=== PATIENT | female | born 1990 | race Two or more races ===

== ENCOUNTER → 2020-09-28 | Outpatient (CLI) | payer OTHER ==
--- NOTE | 2020-09-28 18:01 | RAD ---
EXAM: Ultrasound OB Greater than 14 weeks INDICATION: Reason: UTERINE SIZE DATE DISCREPANCY / Spl. Instructions: / History: TECHNIQUE: Real-time obstetrical ultrasound was performed with permanent freeze-frame documentation. COMPARISON: None. FINDINGS: POSITION: Breech. HEART RATE: 1 49 bpm BRYNN: 15 cm PLACENTA: Anterior, likely low-lying. There is thickening in the region of the central placenta which could reflect presence of an underlying leiomyoma or less likely a sustained uterine contraction. CERVICAL LENGTH: 4.9 cm MATERNAL UTERUS: Unremarkable. MATERNAL ADNEXA: Unremarkable. AGE/DATES: Gestational Age by LMP: 19 weeks 4 days Gestation Age by US: 19 weeks 5 days EDC by LMP: February 18, 2021 EDC by US: February 17, 2021 WEIGHT: 294 grams +/- 44 grams PERCENTILE WEIGHT: Not estimated BIOMETRIC PARAMETERS: BPD: 4.7 cm corresponding with 20 weeks 2 days HC: 17.4 cm corresponding with 19 weeks 6 days AC: 14.2 cm corresponding with 19 weeks 4 days FL: 2.9 cm corresponding with 19 weeks 1 day ANATOMY: CARDIAC: Normal four chamber heart. UMBILICAL CORD: Normal 3 vessel cord. Normal cord insertion. BRAIN: Unremarkable. NOSE/LIPS: Unremarkable SPINE: Unremarkable. EXTREMITIES: Unremarkable. STOMACH: Unremarkable. KIDNEYS: Unremarkable. BLADDER: Unremarkable. IMPRESSION: Normal OB ultrasound demonstrating a single viable fetus in breech position. Estimated gestational age of 19 weeks 5 days and EDC of February 17, 2021. Electronically signed by: Erasmo Reyes MD (09/28/2020 5:58 PM) [id number]
== END ==
LOC: US 12:08
PROVIDERS: ATTEND Obstetrics & Gynecology
DX: O26.842 Uterine size-date discrepancy, second trimester (principal); Z3A.19 19 weeks gestation of pregnancy
CPT/HCPCS: 76805

== ENCOUNTER 2021-02-14 19:54 | Inpatient (IN) | payer OTHER ==
[~2021-02-14] VITALS: Ht 152.4 cm; Wt 93.0 kg
[2021-02-14] MEDS ORDERED: ACETAMINOPHEN 325 MG TABLET. PO PRN (20:00)
[2021-02-14] MEDS ORDERED: IV RINGERS,LACTATED 1000ML 1,000 ML IV PRN ×2 (20:00→21:00)
[2021-02-14] MEDS ORDERED: ONDANSETRON PF 4 MG/2 ML VIAL. IVP PRN (20:00)
[2021-02-14 20:34] LABS: BILIRUBIN,URINE NEGATIVE (NEG); CLARITY,URINE TURBID; COLOR,URINE YELLOW; NITRITE,URINE NEGATIVE (NEG); PH,URINE 6.5 (<5.0-8.0); PROTEIN,URINE 30 mg/dL (NEG-TRACE); UROBILINOGEN,URINE 0.2 mg/dL (0.2 mg/dL)
[2021-02-14 20:40] LABS: WBC,URINE TNTC /HPF (0-4)
[2021-02-14 20:41] LABS: BACTERIA,URINE MANY /HPF (0-FEW)
[2021-02-14 20:42] LABS: YEAST,URINE PRESENT /HPF
[2021-02-14 20:45] LABS: AMNIO PT NEGATIVE
[2021-02-14 20:47] LABS: BARBITURATES NEG (NEG); BENZODIAZEPINES NEG (NEG); CANNABINOIDS NEG (NEG); COCAINE NEG (NEG); METHADONE NEG (NEG); OPIATES NEG (NEG); PHENCYCLIDINE NEG (NEG)
[2021-02-14 20:52] LABS: AMPHETAMINE/METHAMPHETAMINE NEG (NEG)
[2021-02-14] MEDS ORDERED: OXYTOCIN 30 UNIT/500 ML PREMIX 500 ML IV PRN (21:00)
[2021-02-14] MEDS ORDERED: IBUPROFEN 400 MG TABLET. PO PRN (21:00)
[2021-02-14] MEDS ORDERED: LIDOCAINE 1% PF 30 ML VIAL. INJ PRN (21:00)
[2021-02-14] MEDS ORDERED: MAG HYDROX/ALUMINUM HYD/SIMETH 30 ML ORAL.SUSP PO PRN (21:00)
[2021-02-14] MEDS ORDERED: TERBUTALINE 1 MG/ML VIAL. SQ PRN (21:00)
[2021-02-14] MEDS ORDERED: fentaNYL PF VIAL 100 MCG/2 ML VIAL IVP PRN (21:00)
[2021-02-14] MEDS ORDERED: 0.9 % SODIUM CHLORIDE 10 ML DISP.SYRIN. IV PRN (21:00)
[2021-02-14] MEDS ORDERED: PENICILLIN G K 5,000,000 UNIT in IV DEXTROSE 5% 100ML 100 ML IV ONE (21:15)
[2021-02-14] MEDS ORDERED: OXYTOCIN PREMIX 30 UNIT/500 ML NS BAG. IV ONE (22:00)
[2021-02-14 22:31] LABS: BASO % 1 % (0-3); EOS % 1 % (0-3); HEMATOCRIT 32.5 % (36.0-47.0); HEMOGLOBIN 10.8 g/dL (12.0-15.5); LYMPH # 1.6 x10^3/uL (1.0-4.8); LYMPH % 19 % (24-48); MEAN CORPUSCULAR HEMOGLOBIN 28 pg (25-35); MEAN CORPUSCULAR HGB CONC 33 g/dL (31-37); MEAN CORPUSCULAR VOLUME 84 fL (79-100); MONO # 0.5 x10^3/uL (0.0-1.1); MONO % 6 % (0-9); NEUT # 6.2 x10^3/uL (1.8-7.7); NEUT % 74 % (31-73); PLATELET COUNT 246 x10^3/uL (140-400); RED BLOOD COUNT 3.88 x10^6/uL (3.50-5.40); WHITE BLOOD COUNT 8.4 x10^3/uL (4.0-11.0)
[2021-02-14 22:42] VITALS: BP 125/74
[2021-02-15] MEDS ORDERED: IV RINGERS,LACTATED 1000ML 1,000 ML IV ONE
[2021-02-15] MEDS ORDERED: ePHEDrine PF IN SALINE 50 MG/10 ML SYRINGE. IV PRN
[2021-02-15] MEDS ORDERED: fentaNYL PF VIAL 100 MCG/2 ML VIAL EPID ONE
[2021-02-15] MEDS ORDERED: ONDANSETRON PF 4 MG/2 ML VIAL. IV PRN
[2021-02-15] MEDS ORDERED: NALOXONE 0.4 MG/ML VIAL. IV PRN
[2021-02-15] MEDS ORDERED: L&D EPIDURAL SYRINGE 50 ML EPID PRN
[2021-02-15] MEDS ORDERED: ROPIVacaine 0.2% PF 10 ML VIAL. ONE ×2 (00:17→01:00)
[2021-02-15] MEDS ORDERED: PENICILLIN G K 2,500,000 UNIT in IV DEXTROSE 5% 50 ML IV SCH (01:15)
--- NOTE | 2021-02-15 02:43 | PDOC1 ---
OB - History Hx of Present Care: Good Care Ultrasounds: Normal mid trimester US Obstetrical Complications: None Medical Complications: None Past Family/Social History * Past Medical, Surgical, Family and Obstetric Histories reviewed from chart. Rubella: Immune RPR/VDRL: Negative GBS Status: Positive HBsAG: Negative OB - Chief Complaint & HPI Date of Admission: Date of Admission: Feb 14, 2021 at 19:54 Chief Complaint/History : 2 Para: 1 EGA: 39 Reason for admission: active labor, rupture of membranes Admission Nurse Assessment Rev: Yes OB - Admission Exam Physical Exam Vitals: VS - Last 72 Hours, by Label Date Time Temp Pulse Resp B/P (MAP) Pulse Ox O2 Delivery O2 Flow Rate FiO2 02/15/21 00:38 Room Air 02/14/21 22:42 98.0 85 20 125/74 (91) 97 Room Air 98.0 HEENT: Normal Heart: Regular Rate Lungs: Clear Abdomen: Gravid, Non tender, Soft Extremities: Edema Reflexes: Normal Cervical Dilatation: 2cm Effacement: 75% Station: -3 Membranes: Ruptured Amniotic Fluid: Clear Accelerations: Accelerations Present Decelerations: No decelerations Contractions on Admission: 6-10 Minutes Apart Text A: 39 wks IUP SROM GBS positive P: Admit labor management. Start Pen G prophylaxis. Start pitocin augmentation. INGRID POE Jr, MD Feb 15, 2021 02:43
[2021-02-15] MEDS ORDERED: oxyCODONE/APAP 5/325 1 TAB TABLET PO PRN (02:45)
[2021-02-15] MEDS ORDERED: ACETAMINOPHEN 325 MG TABLET. PO PRN (02:45)
[2021-02-15] MEDS ORDERED: 0.9 % SODIUM CHLORIDE 10 ML DISP.SYRIN. IV PRN (02:45)
[2021-02-15] MEDS ORDERED: BENZOCAINE 20% TOPICAL AEROSOL SPRAY 57GM CAN. TP PRN (02:45)
[2021-02-15] MEDS ORDERED: OXYTOCIN 30 UNIT/500 ML PREMIX 500 ML IV PRN (02:45)
[2021-02-15] MEDS ORDERED: MAG HYDROX/ALUMINUM HYD/SIMETH 30 ML ORAL.SUSP PO PRN (02:45)
[2021-02-15] MEDS ORDERED: PHENYLEPH/MINERAL OIL/PETROLAT RECTAL OINTMENT TUBE. RC PRN (02:45)
[2021-02-15] MEDS ORDERED: TDaP (Adacel) per PROTOCOL. MC PRN (02:45)
[2021-02-15] MEDS ORDERED: SIMETHICONE 80 MG TAB.CHEW PO PRN (02:45)
[2021-02-15] MEDS ORDERED: ZOLPIDEM 5 MG TABLET. PO PRN (02:45)
[2021-02-15] MEDS ORDERED: HYDROCORTISONE 1% TOPICAL OINTMENT 30GM TUBE. TP PRN (02:45)
[2021-02-15] MEDS ORDERED: MMR per PROTOCOL. MC PRN (02:45)
[2021-02-15] MEDS ORDERED: diphenhydrAMINE HCL 25 MG CAPSULE PO PRN (02:45)
[2021-02-15] MEDS ORDERED: MAGNESIUM HYDROXIDE 2,400 MG/30 ML ORAL.SUSP. PO PRN (02:45)
--- NOTE | 2021-02-15 02:45 | PDOC ---
VAGINAL DELIVERY DATE DATE: 02/15/21 TIME: 02:44 : 2 Para: 2 EGA: 39 VAGINAL DELIVERY: VTX VACCUM ASSISTED: No PLACENTA: Spontaneous 8/9 SEX: Male WEIGHT Weight [ 3030 gm ] Nuchal Cord: Yes, Times 1 Amniotic Fluid: Clear PAIN: Epidural EPISIOTOMY: No EXTENSION: Yes (1st degree midline; hemostatic) REPAIRED WITH none EBL 300 ml COMPLICATIONS none CONDITION pt. stable Signs of Intrauterine Infectio: None Shoulder Dystocia: No INGRID POE Jr, MD Feb 15, 2021 02:45
[2021-02-15 07:30] VITALS: BP 97/55
[2021-02-15] MEDS: MULTIVITAMIN with MINERAL TABLET. PO SCH (08:24)
[2021-02-15] MEDS: DOCUSATE SODIUM 100 MG CAPSULE. PO PRN (08:24)
[2021-02-15] MEDS: IBUPROFEN 400 MG TABLET. PO PRN ×2 (08:26→15:59)
[2021-02-15 12:15] VITALS: BP 94/42
[2021-02-15 16:10] VITALS: BP 114/57
[2021-02-15 20:30] VITALS: BP 99/58
[2021-02-16 01:30] VITALS: BP 110/68
[2021-02-16] MEDS: IBUPROFEN 400 MG TABLET. PO PRN ×3 (01:51→20:37)
[2021-02-16 05:09] LABS: BASO % 1 % (0-3); EOS # 0.1 x10^3/uL (0.0-0.7); EOS % 1 % (0-3); HEMATOCRIT 29.2 % (36.0-47.0); HEMOGLOBIN 9.8 g/dL (12.0-15.5); LYMPH # 2.2 x10^3/uL (1.0-4.8); LYMPH % 24 % (24-48); MEAN CORPUSCULAR HEMOGLOBIN 28 pg (25-35); MEAN CORPUSCULAR HGB CONC 34 g/dL (31-37); MEAN CORPUSCULAR VOLUME 84 fL (79-100); MONO # 0.5 x10^3/uL (0.0-1.1); MONO % 6 % (0-9); NEUT # 6.2 x10^3/uL (1.8-7.7); NEUT % 69 % (31-73); PLATELET COUNT 212 x10^3/uL (140-400); RED BLOOD COUNT 3.47 x10^6/uL (3.50-5.40); RED CELL DISTRIBUTION WIDTH 14.2 % (11.5-14.5)
[2021-02-16 07:00] VITALS: BP 96/62
[2021-02-16] MEDS: DOCUSATE SODIUM 100 MG CAPSULE. PO PRN (09:12)
[2021-02-16] MEDS: FERROUS SULFATE 325 MG TABLET. PO SCH (09:13)
[2021-02-16] MEDS: MULTIVITAMIN with MINERAL TABLET. PO SCH (09:13)
--- NOTE | 2021-02-16 12:01 | PDOC ---
OB Progress Note Date of Service 02/16/21 Time of Evaluation 1200 Notes Pt. feeling well. No complaints. Lab Laboratory Tests Test 02/14/21 20:00 02/14/21 20:30 02/14/21 22:00 02/14/21 22:26 Urine Collection Type Unknown Urine Color Yellow Urine Clarity Turbid Urine pH 6.5 (<5.0-8.0) Urine Specific Harvest 1.020 (1.000-1.030) Urine Protein 30 mg/dL (NEG-TRACE) Urine Glucose (UA) Negative mg/dL (NEG) Urine Ketones (Stick) Negative mg/dL (NEG) Urine Blood Large (NEG) Urine Nitrite Negative (NEG) Urine Bilirubin Negative (NEG) Urine Urobilinogen Dipstick 0.2 mg/dL (0.2 mg/dL) Urine Leukocyte Esterase Large (NEG) Urine RBC 11-20 /HPF (0-2) Urine WBC Tntc /HPF (0-4) Urine Squamous Epithelial Cells Many /LPF Urine Bacteria Many /HPF (0-FEW) Urine Mucus Mod /LPF Urine Yeast Present /HPF Urine Opiates Screen Neg (NEG) Urine Methadone Screen Neg (NEG) Urine Barbiturates Neg (NEG) Urine Phencyclidine Screen Neg (NEG) Urine Amphetamine/Methamphetamine Neg (NEG) Urine Benzodiazepines Screen Neg (NEG) Urine Cocaine Screen Neg (NEG) Urine Cannabinoids Screen Neg (NEG) Urine Ethyl Alcohol Neg (NEG) Amniotic Fluid Swab Test Negative SARS-CoV-2 RNA (MARCIAL) Negative (Negative) White Blood Count 8.4 x10^3/uL (4.0-11.0) Red Blood Count 3.88 x10^6/uL (3.50-5.40) Hemoglobin 10.8 g/dL (12.0-15.5) Hematocrit 32.5 % (36.0-47.0) Mean Corpuscular Volume 84 fL (79-100) Mean Corpuscular Hemoglobin 28 pg (25-35) Mean Corpuscular Hemoglobin Concent 33 g/dL (31-37) Red Cell Distribution Width 14.0 % (11.5-14.5) Platelet Count 246 x10^3/uL (140-400) Neutrophils (%) (Auto) 74 % (31-73) Lymphocytes (%) (Auto) 19 % (24-48) Monocytes (%) (Auto) 6 % (0-9) Eosinophils (%) (Auto) 1 % (0-3) Basophils (%) (Auto) 1 % (0-3) Neutrophils # (Auto) 6.2 x10^3/uL (1.8-7.7) Lymphocytes # (Auto) 1.6 x10^3/uL (1.0-4.8) Monocytes # (Auto) 0.5 x10^3/uL (0.0-1.1) Eosinophils # (Auto) 0.0 x10^3/uL (0.0-0.7) Basophils # (Auto) 0.0 x10^3/uL (0.0-0.2) Treponema pallidum Antibody Nonreactive (Nonreactive) SARS-CoV-2 Antigen (Rapid) Negative (NEGATIVE) Test 02/16/21 04:45 White Blood Count 9.0 x10^3/uL (4.0-11.0) Red Blood Count 3.47 x10^6/uL (3.50-5.40) Hemoglobin 9.8 g/dL (12.0-15.5) Hematocrit 29.2 % (36.0-47.0) Mean Corpuscular Volume 84 fL (79-100) Mean Corpuscular Hemoglobin 28 pg (25-35) Mean Corpuscular Hemoglobin Concent 34 g/dL (31-37) Red Cell Distribution Width 14.2 % (11.5-14.5) Platelet Count 212 x10^3/uL (140-400) Neutrophils (%) (Auto) 69 % (31-73) Lymphocytes (%) (Auto) 24 % (24-48) Monocytes (%) (Auto) 6 % (0-9) Eosinophils (%) (Auto) 1 % (0-3) Basophils (%) (Auto) 1 % (0-3) Neutrophils # (Auto) 6.2 x10^3/uL (1.8-7.7) Lymphocytes # (Auto) 2.2 x10^3/uL (1.0-4.8) Monocytes # (Auto) 0.5 x10^3/uL (0.0-1.1) Eosinophils # (Auto) 0.1 x10^3/uL (0.0-0.7) Basophils # (Auto) 0.0 x10^3/uL (0.0-0.2) Laboratory Tests Test 02/16/21 04:45 White Blood Count 9.0 x10^3/uL (4.0-11.0) Red Blood Count 3.47 x10^6/uL (3.50-5.40) Hemoglobin 9.8 g/dL (12.0-15.5) Hematocrit 29.2 % (36.0-47.0) Mean Corpuscular Volume 84 fL (79-100) Mean Corpuscular Hemoglobin 28 pg (25-35) Mean Corpuscular Hemoglobin Concent 34 g/dL (31-37) Red Cell Distribution Width 14.2 % (11.5-14.5) Platelet Count 212 x10^3/uL (140-400) Neutrophils (%) (Auto) 69 % (31-73) Lymphocytes (%) (Auto) 24 % (24-48) Monocytes (%) (Auto) 6 % (0-9) Eosinophils (%) (Auto) 1 % (0-3) Basophils (%) (Auto) 1 % (0-3) Neutrophils # (Auto) 6.2 x10^3/uL (1.8-7.7) Lymphocytes # (Auto) 2.2 x10^3/uL (1.0-4.8) Monocytes # (Auto) 0.5 x10^3/uL (0.0-1.1) Eosinophils # (Auto) 0.1 x10^3/uL (0.0-0.7) Basophils # (Auto) 0.0 x10^3/uL (0.0-0.2) Medications Current Medications Ringer's Solution 1,000 ml @ 125 mls/hr Q8H PRN IV HYDRATION; Start 02/14/21 at 20:00; Stop 02/14/21 at 21:20; Status DC Acetaminophen (Tylenol) 650 mg PRN Q6HRS PRN PO PAIN, TEMP > 100.5'F; Start 02/14/21 at 20:00; Stop 02/15/21 at 02:54; Status DC Ondansetron HCl (Zofran) 4 mg PRN Q6HRS PRN IVP NAUSEA; Start 02/14/21 at 20:00 Sodium Chloride (Normal Saline Flush) 3 ml QSHIFT PRN IV AFTER MEDS AND BLOOD DRAWS; Start 02/14/21 at 21:00 Ringer's Solution 1,000 ml @ 125 mls/hr Q8H PRN IV Hydration Last administered on 02/14/21at 21:51; Start 02/14/21 at 21:00; Stop 02/15/21 at 05:17; Status DC Fentanyl Citrate (Fentanyl 2ml Vial) 100 mcg PRN Q30MIN PRN IVP Severe pain; Start 02/14/21 at 21:00 Al Hydroxide/Mg Hydroxide (Mylanta Plus Xs) 30 ml PRN Q4HRS PRN PO HEARTBURN / GAS; Start 02/14/21 at 21:00; Stop 02/15/21 at 02:55; Status DC Terbutaline Sulfate (Brethine) 0.25 mg 1X PRN PRN SQ SEE COMMENTS; Start 02/14/21 at 21:00; Stop 02/15/21 at 20:59; Status DC Lidocaine HCl (Xylocaine 1% Pf 30ml Vial) 30 ml 1X PRN PRN INJ SEE COMMENTS; Start 02/14/21 at 21:00; Stop 02/16/21 at 20:59 Oxytocin 500 ml @ 0 mls/hr CONT PRN PRN IV Post delivery bleeding; Start 02/14/21 at 21:00 Ibuprofen (Motrin) 800 mg PRN Q6HRS PRN PO PAIN MILD; Start 02/14/21 at 21:00; Stop 02/15/21 at 02:55; Status DC Penicillin G Potassium [id number] unit/Dextrose 100 ml @ 100 mls/hr 1X ONCE IV Last administered on 02/14/21at 21:52; Start 02/14/21 at 21:15; Stop 02/14/21 at 22:14; Status DC Penicillin G Potassium [id number] unit/Dextrose 50 ml @ 100 mls/hr Q4H IV Last administered on 02/15/21at 01:43; Start 02/15/21 at 01:15; Stop 02/15/21 at 05:17; Status DC Ringer's Solution 1,000 ml @ 0 mls/hr Q0M ONCE IV Last administered on 02/15/21at 00:34; Start 02/15/21 at 00:00; Stop 02/15/21 at 00:11; Status DC Ephedrine Sulfate (ePHEDrine PF IN SALINE SYRINGE) 10 mg PRN Q2MIN PRN IV IF SBP<90; Start 02/15/21 at 00:00 Naloxone HCl (Narcan) 0.04 mg PRN Q1MIN PRN IV SEE COMMENTS; Start 02/15/21 at 00:00 Fentanyl Citrate (Fentanyl 2ml Vial) 100 mcg 1X ONCE EPID Last administered on 02/15/21at 00:35; Start 02/15/21 at 00:00; Stop 02/15/21 at 00:07; Status DC Fentanyl Citrate 50 ml @ 14 mls/hr CONT PRN EPID PAIN Last administered on 02/15/21at 00:38; Start 02/15/21 at 00:00 Ondansetron HCl (Zofran) 4 mg PRN Q6HRS PRN IV NAUSEA/VOMITING; Start 02/15/21 at 00:00 Ropivacaine (Naropin 0.2%) 10 ml STK-MED ONCE .ROUTE ; Start 02/15/21 at 00:17; Stop 02/15/21 at 00:17; Status DC Sodium Chloride (Normal Saline Flush) 10 ml QSHIFT PRN IV AFTER MEDS AND BLOOD DRAWS; Start 02/15/21 at 02:45 Oxytocin 500 ml @ 62.5 mls/hr CONT PRN IV SEE I/O RECORD; Start 02/15/21 at 02:45; Stop 02/15/21 at 10:44; Status DC Acetaminophen (Tylenol) 650 mg PRN Q6HRS PRN PO MILD PAIN / TEMP > 100.3'F; Start 02/15/21 at 02:45 Ibuprofen (Motrin) 800 mg PRN Q8HRS PRN PO INFLAMMATION/PAIN PREVENTION Last administered on 02/16/21at 09:13; Start 02/15/21 at 02:45 Docusate Sodium (Colace) 100 mg PRN BID PRN PO HARD STOOLS Last administered on 02/16/21at 09:12; Start 02/15/21 at 02:45 Magnesium Hydroxide (Milk Of Magnesia) 2,400 mg PRN DAILY PRN PO CONSTIPATION; Start 02/15/21 at 02:45 Al Hydroxide/Mg Hydroxide (Mylanta Plus Xs) 30 ml PRN Q4HRS PRN PO HEARTBURN / GAS; Start 02/15/21 at 02:45 Simethicone (Gas-X) 80 mg PRN AFTMEALHC PRN PO GAS / BLOATING; Start 02/15/21 at 02:45 Diphenhydramine HCl (Benadryl) 25 mg PRN Q6HRS PRN PO ITCHING; Start 02/15/21 at 02:45 Benzocaine (Americaine) 1 spray PRN QID PRN TP TOPICAL PAIN; Start 02/15/21 at 02:45 Phenyleph/Shark Oil/Min Oil/Petrol (Preparation H) 1 ernestine PRN QID PRN RC RECTAL PAIN; Start 02/15/21 at 02:45 Hydrocortisone (Cortaid) 1 ernestine PRN QID PRN TP PERINEAL PAIN; Start 02/15/21 at 02:45 Ferrous Sulfate (Feosol) 325 mg BIDWMEALS PO Last administered on 02/16/21at 09:13; Start 02/16/21 at 08:00 Zolpidem Tartrate (Ambien) 5 mg PRN QHS PRN PO INSOMNIA, MAY REPEAT X1; Start 02/15/21 at 02:45 Info (Do NOT chart on this placeholder) 1 ea 1X PRN PRN MC SEE COMMENTS; Start 02/15/21 at 02:45 Info (Do NOT chart on this placeholder) 1 ea 1X PRN PRN MC SEE COMMENTS; Start 02/15/21 at 02:45 Oxycodone/ Acetaminophen (Percocet 5/325) 2 tab PRN Q4HRS PRN PO MODERATE PAIN, SEVERE PAIN; Start 02/15/21 at 02:45 Multivitamins (Thera M Plus) 1 tab DAILY PO Last administered on 02/16/21at 09:13; Start 02/15/21 at 09:00 Ropivacaine (Naropin 0.2%) 10 ml STK-MED ONCE .ROUTE ; Start 02/15/21 at 01:00; Stop 02/15/21 at 13:02; Status DC Oxytocin (Oxytocin Premix Infusion) 30 unit STK-MED ONCE IV ; Start 02/14/21 at 22:00; Stop 02/15/21 at 13:16; Status DC Exam Abd: soft, non tender, fundus firm Assessment PPD#1 s/p Plan of Care: Continue current Tx, Mgmt INGRID POE Jr, MD Feb 16, 2021 12:01
[2021-02-16 15:03] VITALS: BP 113/70
[2021-02-16 20:00] VITALS: BP 112/75
[2021-02-17] VITALS: BP 112/75
[2021-02-17 05:00] VITALS: BP 106/65
[2021-02-17] MEDS: IBUPROFEN 400 MG TABLET. PO PRN ×2 (05:53→10:44)
[2021-02-17 09:20] VITALS: BP 106/65
[2021-02-17] MEDS: FERROUS SULFATE 325 MG TABLET. PO SCH (10:43)
[2021-02-17] MEDS: MULTIVITAMIN with MINERAL TABLET. PO SCH (10:43)
[2021-02-17] MEDS: DOCUSATE SODIUM 100 MG CAPSULE. PO PRN (10:43)
--- NOTE | 2021-02-17 11:02 | PDOC3 ---
OB DISCHARGE SUMMARY DATE OF ADMISSION: 02/15/21 DATE OF DISCHARGE: 02/17/21 REASON FOR ADMISSION: Onset of labor INTRAPARTUM PROCEDURES: Spontanous Vag Deliv DISCHARGE DIAGNOSIS: Term Delivered DISCHARGE INFORMATION: Activity (ad charo), Diet (regular), Instructions (pelvic rest x 6 wks) HOSPITAL COURSE Term gestation delivered vaginally without complications. INGRID POE Jr, MD Feb 17, 2021 11:02
--- NOTE | 2021-02-17 11:04 | DISCH ---
DISCHARGE INSTRUCTIONS Condition on Discharge Condition on Discharge: Stable Activity After Discharge Activity Instructions for Disc: Activity as tolerated Lifting Instructions after Dis: No heavy lifting Driving Instructions after Dis: Do not drive today Diet after Discharge Diet after Discharge: Regular Contacting the DRThea after DC Call your doctor for: Concerns you may have Follow-Up Follow up with: Dr. Bey in 6 wks INGRID BEY Jr, MD Feb 17, 2021 11:04
[2021-02-17 13:29] VITALS: BP 114/81
== END 2021-02-17 14:36 | disposition home or self-care (01) | DRG 807 ==
LOC: 3 SO LND 19:54 → OBSVTOIN 19:54 → 3 SO LND 02-15 05:05
PROVIDERS: ADMIT Obstetrics & Gynecology; ATTEND Obstetrics & Gynecology
PROC: 10E0XZZ Delivery of Products of Conception, External Approach (ICD-10-PCS; principal; 2021-02-16)
PROC: 0HQ9XZZ Repair Perineum Skin, External Approach (ICD-10-PCS; 2021-02-16)
PROC: 3E0S3BZ Introduction of Anesthetic Agent into Epidural Space, Percutaneous Approach (ICD-10-PCS; 2021-02-16)
PROC: 00HU33Z Insertion of Infusion Device into Spinal Canal, Percutaneous Approach (ICD-10-PCS; 2021-02-16)
DX: O99.824 Streptococcus B carrier state complicating childbirth (principal); Z37.0 Single live birth; Z3A.39 39 weeks gestation of pregnancy; O70.0 First degree perineal laceration during delivery; O69.81X0 Labor and delivery complicated by cord around neck, without compression, not applicable or unspecified; Z20.822 Contact with and (suspected) exposure to COVID-19; Z88.8 Allergy status to other drugs, medicaments and biological substances
CPT/HCPCS: 36415; 80307; 81001; 84112; 85025; 86592; 86850; 86900; 86901; 87086; 87426; A6258; C1755; J2540; J2590; J2795; J3010; J7060; J7120; U0003; G0378

== ENCOUNTER → 2021-06-29 | Outpatient (CLI) | payer OTHER ==
[2021-06-29 11:10] LABS: BASO # 0.1 x10^3/uL (0.0-0.2); BASO % 1 % (0-3); EOS # 0.1 x10^3/uL (0.0-0.7); EOS % 2 % (0-3); HEMATOCRIT 39.4 % (36.0-47.0); HEMOGLOBIN 13.1 g/dL (12.0-15.5); LYMPH # 1.9 x10^3/uL (1.0-4.8); LYMPH % 29 % (24-48); MEAN CORPUSCULAR HEMOGLOBIN 29 pg (25-35); MEAN CORPUSCULAR HGB CONC 33 g/dL (31-37); MEAN CORPUSCULAR VOLUME 87 fL (79-100); MONO # 0.4 x10^3/uL (0.0-1.1); MONO % 6 % (0-9); NEUT % 62 % (31-73); PLATELET COUNT 234 x10^3/uL (140-400); RED BLOOD COUNT 4.53 x10^6/uL (3.50-5.40); RED CELL DISTRIBUTION WIDTH 13.2 % (11.5-14.5); WHITE BLOOD COUNT 6.5 x10^3/uL (4.0-11.0)
[2021-06-29 11:38] LABS: CHOLESTEROL/HDL RATIO 3.7
[2021-06-29 11:42] LABS: FREE T4 1.09 ng/dL (0.76-1.46); THYROID STIM HORMONE (TSH) 2.479 uIU/mL (0.358-3.74)
== END ==
LOC: LAB 10:45
PROVIDERS: ATTEND Obstetrics & Gynecology
DX: Z01.419 Encounter for gynecological examination (general) (routine) without abnormal findings (principal)
CPT/HCPCS: 36415; 80061; 84439; 84443; 85025